=== PATIENT | male | born 1995 | race African-American/Black ===

== ENCOUNTER 2018-08-29 17:40 | Emergency (ER) | payer OTHER ==
[~2018-08-29] VITALS: Ht 167.6 cm; Wt 75.3 kg
[2018-08-29] MEDS ORDERED: IV NORMAL SALINE 1000ML BAG 1,000 ML IV ONE (18:15)
[2018-08-29 18:40] LABS: BASO # 0.1 x10^3/uL (0.0-0.2); BASO % 1 % (0-3); EOS # 0.2 x10^3/uL (0.0-0.7); EOS % 4 % (0-3); HEMATOCRIT 44.4 % (39.0-53.0); HEMOGLOBIN 15.2 g/dL (13.0-17.5); LYMPH # 1.8 x10^3/uL (1.0-4.8); LYMPH % 35 % (24-48); MEAN CORPUSCULAR HEMOGLOBIN 29 pg (25-35); MEAN CORPUSCULAR HGB CONC 34 g/dL (31-37); MEAN CORPUSCULAR VOLUME 85 fL (79-100); MONO # 0.6 x10^3/uL (0.0-1.1); MONO % 11 % (0-9); NEUT # 2.6 x10^3uL (1.8-7.7); NEUT % 49 % (31-73); PLATELET COUNT 163 x10^3/uL (140-400); RED BLOOD COUNT 5.22 x10^6/uL (4.30-5.70); RED CELL DISTRIBUTION WIDTH 13.4 % (11.5-14.5); WHITE BLOOD COUNT 5.2 x10^3/uL (4.0-11.0)
[2018-08-29 18:49] LABS: CALCIUM 9.5 mg/dL (8.5-10.1); CREATININE 1.2 mg/dL (0.7-1.3); GFR 90.8; POTASSIUM 4.3 mmol/L (3.5-5.1)
[2018-08-29 19:02] LABS: ALBUMIN 4.2 g/dL (3.4-5.0); ALBUMIN/GLOBULIN RATIO 1.4 (1.0-1.7); MAGNESIUM 2.2 mg/dL (1.8-2.4); TOTAL BILIRUBIN 0.6 mg/dL (0.2-1.0); TOTAL PROTEIN 7.3 g/dL (6.4-8.2)
--- NOTE | 2018-08-29 19:17 | RAD ---
Bilateral lower extremity venous Doppler dated 08/29/2018. No comparison available. Clinical data indication: Tingling and pain. Recent car travel. FINDINGS: Grayscale, color-flow and spectral waveform analysis performed to include the deep venous system of both lower extremity. Normal compressibility, phasicity and augmentation of flow throughout. No filling defects are seen. IMPRESSION: No evidence of lower extremity deep vein thrombosis. Electronically signed by: Ovidio Fountain MD (08/29/2018 7:14 PM) [facility]
[2018-08-29 19:18] LABS: BILIRUBIN,URINE NEGATIVE (NEG); CLARITY,URINE CLOUDY; COLOR,URINE YELLOW; NITRITE,URINE NEGATIVE (NEG); PROTEIN,URINE NEGATIVE (NEG-TRACE); UROBILINOGEN,URINE 0.2 mg/dL (0.2 mg/dL)
[2018-08-29 19:26] LABS: AMPHETAMINE/METHAMPHETAMINE NEG (NEG); BARBITURATES NEG (NEG); BENZODIAZEPINES NEG (NEG); CANNABINOIDS POS (NEG); COCAINE NEG (NEG); METHADONE NEG (NEG); OPIATES NEG (NEG); PHENCYCLIDINE NEG (NEG)
[2018-08-29 19:27] LABS: BACTERIA,URINE 0 /HPF (0-FEW); RBC,URINE 0 /HPF (0-2); SQUAMOUS EPITHELIAL CELL,UR FEW /LPF; WBC,URINE 0 /HPF (0-4)
--- NOTE | 2018-08-29 19:39 | RAD ---
Single view chest dated 08/29/2018. Comparison made to 12/27/2006. CLINICAL INDICATION: Pain. FINDINGS: Single upright portable exam performed. Heart and mediastinal contours are stable. Lungs are somewhat hyperinflated but otherwise clear. No consolidation or pleural effusion. No pneumothorax. IMPRESSION: No acute radiographic abnormality. Electronically signed by: Ovidio Fountain MD (08/29/2018 7:36 PM) [facility]
[2018-08-29 20:24] VITALS: BP 117/60
--- NOTE | 2018-08-29 20:45 | PHYS DOC ---
Past Medical History Past Medical History: No Pertinent History Past Surgical History: No Surgical History Alcohol Use: Rarely Drug Use: None Adult General Chief Complaint Chief Complaint: OTHER COMPLAINTS [facility] HPI Patient is a 23 year old male with no medical history who presents to the ED complaining of tingling to bilateral thighs and bilateral biceps. Patient states he does intensive workout sessions. He states since this morning he has had this tingling/internal itching sensation in his biceps as well as thighs. Patient denies any injury. Denies any chest pain or shortness of breath. Denies any headache. He states he traveled from [place] to [place] by vehicle 2 days ago. Denies any unilateral leg pain, denies any numbness to bilateral lower extremities. Denies any use of hormones or steroids. Denies any recent hospitalization or surgery Review of Systems Review of Systems Constitutional: Denies fever or chills [] Eyes: Denies change in visual acuity, redness, or eye pain [] HENT: Denies nasal congestion or sore throat [] Respiratory: Denies cough or shortness of breath [] Cardiovascular: No additional information not addressed in HPI [] GI: Denies abdominal pain, nausea, vomiting, bloody stools or diarrhea [] : Denies dysuria or hematuria [] Musculoskeletal: Reports tingling to bilateral thighs and biceps. Denies back pain or joint pain [] Integument: Denies rash or skin lesions [] Neurologic: Denies headache, focal weakness or sensory changes [] All other systems were reviewed and found to be within normal limits, except as documented in this note. Current Medications Current Medications Current Medications Medications (Trade) Dose Ordered Sig/Ana Cristina Start Time Stop Time Status Last Admin Dose Admin Sodium Chloride 1,000 ml @ 1,000 mls/hr 1X ONCE 08/29/18 18:15 08/29/18 19:14 DC 08/29/18 18:34 1,000 MLS/HR Allergies Allergies Allergies Coded Allergies Type Severity Reaction Last Updated Verified No Known Drug Allergies 10/06/17 No Physical Exam Physical Exam Constitutional: Well developed, well nourished, no acute distress, non-toxic appearance. [] HENT: Normocephalic, atraumatic, bilateral external ears normal, oropharynx moist, no oral exudates, nose normal. [] Eyes: PERRLA, EOMI, conjunctiva normal, no discharge. [] Neck: Normal range of motion, no tenderness, supple, no stridor. [] Cardiovascular:Heart rate regular rhythm, no murmur [] Lungs & Thorax: Bilateral breath sounds clear to auscultation [] Abdomen: Bowel sounds normal, soft, no tenderness, no masses, no pulsatile masses. [] Skin: Warm, dry, no erythema, no rash. [] Back: No tenderness, no CVA tenderness. [] Extremities: No tenderness, no cyanosis, no clubbing, ROM intact, no edema. Negative Homans sign bilaterally Neurologic: Alert and oriented X 3, normal motor function, normal sensory function, no focal deficits noted. Cranial nerves II through XII intact Psychologic: Affect normal, judgement normal, mood normal. [] Current Patient Data Vital Signs Vital Signs Date Time Temp Pulse Resp B/P (MAP) Pulse Ox O2 Delivery O2 Flow Rate FiO2 08/29/18 19:54 56 16 123/58 (79) 99 Room Air 08/29/18 17:49 98.1 98.1 Lab Values Laboratory Tests Test 08/29/18 18:30 08/29/18 19:10 White Blood Count 5.2 x10^3/uL (4.0-11.0) Red Blood Count 5.22 x10^6/uL (4.30-5.70) Hemoglobin 15.2 g/dL (13.0-17.5) Hematocrit 44.4 % (39.0-53.0) Mean Corpuscular Volume 85 fL (79-100) Mean Corpuscular Hemoglobin 29 pg (25-35) Mean Corpuscular Hemoglobin Concent 34 g/dL (31-37) Red Cell Distribution Width 13.4 % (11.5-14.5) Platelet Count 163 x10^3/uL (140-400) Neutrophils (%) (Auto) 49 % (31-73) Lymphocytes (%) (Auto) 35 % (24-48) Monocytes (%) (Auto) 11 % (0-9) H Eosinophils (%) (Auto) 4 % (0-3) H Basophils (%) (Auto) 1 % (0-3) Neutrophils # (Auto) 2.6 x10^3uL (1.8-7.7) Lymphocytes # (Auto) 1.8 x10^3/uL (1.0-4.8) Monocytes # (Auto) 0.6 x10^3/uL (0.0-1.1) Eosinophils # (Auto) 0.2 x10^3/uL (0.0-0.7) Basophils # (Auto) 0.1 x10^3/uL (0.0-0.2) Sodium Level 140 mmol/L (136-145) Potassium Level 4.3 mmol/L (3.5-5.1) Chloride Level 104 mmol/L (98-107) Carbon Dioxide Level 29 mmol/L (21-32) Anion Gap 7 (6-14) Blood Urea Nitrogen 15 mg/dL (8-26) Creatinine 1.2 mg/dL (0.7-1.3) Estimated GFR (Cockcroft-Gault) 90.8 BUN/Creatinine Ratio 13 (6-20) Glucose Level 101 mg/dL (70-99) H Calcium Level 9.5 mg/dL (8.5-10.1) Magnesium Level 2.2 mg/dL (1.8-2.4) Total Bilirubin 0.6 mg/dL (0.2-1.0) Aspartate Amino Transferase (AST) 20 U/L (15-37) Alanine Aminotransferase (ALT) 25 U/L (16-63) Alkaline Phosphatase 58 U/L (46-116) Creatine Kinase 376 U/L (39-308) H Creatine Kinase MB (Mass) 1.2 ng/mL (0.0-3.6) Creatine Kinase MB Relative Index 0.3 % (0-4) Myoglobin 48 ng/mL (16-96) Troponin I Quantitative < 0.017 ng/mL (0.000-0.055) VA-Idc-W-Type Natriuretic Peptide 15 pg/mL (0-124) Total Protein 7.3 g/dL (6.4-8.2) Albumin 4.2 g/dL (3.4-5.0) Albumin/Globulin Ratio 1.4 (1.0-1.7) Lipase 177 U/L (73-393) Thyroid Stimulating Hormone (TSH) 1.872 uIU/mL (0.358-3.74) Urine Collection Type Unknown Urine Color Yellow Urine Clarity Cloudy Urine pH 7.0 Urine Specific Dahlgren 1.020 Urine Protein Negative mg/dL (NEG-TRACE) Urine Glucose (UA) Negative mg/dL (NEG) Urine Ketones (Stick) Negative mg/dL (NEG) Urine Blood Negative (NEG) Urine Nitrite Negative (NEG) Urine Bilirubin Negative (NEG) Urine Urobilinogen Dipstick 0.2 mg/dL (0.2 mg/dL) Urine Leukocyte Esterase Negative (NEG) Urine RBC 0 /HPF (0-2) Urine WBC 0 /HPF (0-4) Urine Squamous Epithelial Cells Few /LPF Urine Bacteria 0 /HPF (0-FEW) Urine Opiates Screen Neg (NEG) Urine Methadone Screen Neg (NEG) Urine Barbiturates Neg (NEG) Urine Phencyclidine Screen Neg (NEG) Urine Amphetamine/Methamphetamine Neg (NEG) Urine Benzodiazepines Screen Neg (NEG) Urine Cocaine Screen Neg (NEG) Urine Cannabinoids Screen Pos (NEG) Urine Ethyl Alcohol Neg (NEG) Laboratory Tests 08/29/18 18:30 Laboratory Tests 08/29/18 18:30 EKG EKG 18:[address] Carter sinus rhythm them heart rate 61 no STEMI Radiology/Procedures Radiology/Procedures []PROCEDURE: VENOUS LOWER EXT BILATERAL Bilateral lower extremity venous Doppler dated 08/29/2018. No comparison available. Clinical data indication: Tingling and pain. Recent car travel. FINDINGS: Grayscale, color-flow and spectral waveform analysis performed to include the deep venous system of both lower extremity. Normal compressibility, phasicity and augmentation of flow throughout. No filling defects are seen. IMPRESSION: No evidence of lower extremity deep vein thrombosis. Electronically signed by: Ovidio Fountain MD (08/29/2018 7:14 PM) [facility] PROCEDURE: PORTABLE CHEST 1V Single view chest dated 08/29/2018. Comparison made to 12/27/2006. CLINICAL INDICATION: Pain. FINDINGS: Single upright portable exam performed. Heart and mediastinal contours are stable. Lungs are somewhat hyperinflated but otherwise clear. No consolidation or pleural effusion. No pneumothorax. IMPRESSION: No acute radiographic abnormality. Electronically signed by: Ovidio Fountain MD (08/29/2018 7:36 PM) [facility] DICTATED and SIGNED BY: OVIDIO FOUNTAIN MD DATE: 08/29/181935 Course & Med Decision Making Course & Med Decision Making Pertinent Labs and Imaging studies reviewed. (See chart for details) This is a 23-year-old female patient presenting to the ED today with tingling/itching sensation in the internal thighs and biceps. Patient does intensive workout sessions. He also traveled from [place] to [place] by vehicle 2 days ago. Venous Doppler is negative bilaterally. Patient's workup is negative. We gave him a liter of fluid. We reassured him. He was discharged to home. Instructed not to do any intensive workout in the next couple days. Follow-up with his own doctor a 1 week. Luisito Disclaimer Dragon Disclaimer This electronic medical record was generated, in whole or in part, using a voice recognition dictation system. Departure Departure Impression: Primary Impression: Tingling in extremities Disposition: HOME, SELF-CARE Condition: STABLE Referrals: NO PCP (PCP) follow up with your doctor in 1-2 weeks Patient Instructions: Paresthesia, [id number] Additional Instructions: You were evaluated in the emergency room, your workup was negative. Please consider resting your muscles/body from intensive exercise for a couple days. Push fluids. Follow-up with your doctor in one week. VIRGINIA VERDUZCO ENAMEL PULVERIZER August 29, 2018 20:45
--- NOTE | 2018-08-30 06:58 | EKG ---
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
== END 2018-08-29 20:51 | disposition home or self-care (01) ==
LOC: ER 17:40
DX: R20.2 Paresthesia of skin (principal); M79.605 Pain in left leg; M79.604 Pain in right leg; R07.89 Other chest pain
CPT/HCPCS: 36415; 71045; 80053; 80307; 81001; 82553; 83690; 83735; 83874; 83880; 84443; 84484; 85025; 93005; 93970; 99285; J7030

== ENCOUNTER → 2018-09-21 | Outpatient (CLI) | payer OTHER ==
[2018-08-29 20:24] VITALS: BP 117/60
--- NOTE | 2018-09-22 09:07 | RAD ---
EXAM: 1. Pelvis one view standing. 2. Pelvis one view sitting. HISTORY: Coccydynia. COMPARISON: None. FINDINGS: Lateral views of the sacrum and coccyx were obtained sitting and standing. There is no displaced fracture. There is no subluxation or displacement of the coccyx sitting or standing. There are no suspicious lesions by radiographs. IMPRESSION: 1. No fracture or subluxation. Electronically signed by: Nicholas El MD (09/22/2018 9:05 AM) [facility]
== END | disposition home or self-care (01) ==
LOC: RAD 17:45
PROVIDERS: ATTEND Family Medicine
DX: M53.3 Sacrococcygeal disorders, not elsewhere classified (principal)
CPT/HCPCS: 72170

== ENCOUNTER → 2018-10-02 | Outpatient (CLI) | payer OTHER ==
--- NOTE | 2018-10-02 12:11 | RAD ---
MRI of the lumbar spine without contrast 10/02/2018 CLINICAL HISTORY: Low back pain with radiates down both legs. TECHNIQUE: Unenhanced T1-weighted and T2-weighted sagittal and axial and inversion recovery sagittal images of the lumbar spine were obtained. FINDINGS: Comparison is made to radiographs of the lumbosacral spine dated 09/21/2018. Minimal S-shaped curvature of the thoracolumbar spine is seen. The morphology and signal characteristics of all of the disks of the lumbar spine are within normal limits. The marrow signal of the lumbar vertebrae visualized sacral is within normal limits. The conus medullaris is normal morphology, position, and signal characteristics. No significant degenerative changes are seen involving the lumbar disc spaces. No focal disc herniation is seen. No area of significant central spinal canal or neural foraminal stenosis is noted. IMPRESSION: Negative study. Electronically signed by: Rommel Leung MD (10/02/2018 12:08 PM) [id number]
== END | disposition home or self-care (01) ==
LOC: MRI 08:43
PROVIDERS: ATTEND Family Medicine
DX: M54.16 Radiculopathy, lumbar region (principal); M43.8X5 Other specified deforming dorsopathies, thoracolumbar region
CPT/HCPCS: 72148

== ENCOUNTER 2019-03-15 14:16 | Emergency (ER) | payer OTHER ==
[~2019-03-15] VITALS: Ht 167.6 cm; Wt 75.3 kg
[2019-03-15 14:54] VITALS: BP 122/56
--- NOTE | 2019-03-15 15:26 | RAD ---
EXAM: Left foot, 3 views. HISTORY: Pain. COMPARISON: None. FINDINGS: 3 views of the left foot are obtained. There is no fracture, dislocation or subluxation. IMPRESSION: No acute osseous finding. Electronically signed by: Tracy Lee MD (03/15/2019 3:24 PM) [place] [id number]
--- NOTE | 2019-03-15 15:41 | PHYS DOC ---
Past Medical History Past Medical History: No Pertinent History Past Surgical History: No Surgical History Alcohol Use: Rarely Drug Use: None Adult General Chief Complaint Chief Complaint: FOOT INJURY PAIN [facility] HPI Patient is a 23 year old AA male who presents to the emergency department with complaints of lateral left midfoot pain after basketball injury on March [id number]. Patient states he was playing basketball when he ended up twisting his left ankle and foot when he came down on another player. Patient denies any numbness, tingling, or weakness. He states he's been taking ibuprofen at home and applying ice as needed for pain. Patient currently rates his pain a 4 out of 10 on pain scale he denies any numbness, tingling, or weakness of the affected extremity. Patient states he has been able to ambulate and bear weight on his left foot without problems. He just reports concern because the foot is rubber heel and sole press tender and painful at the end of each day. All other ROS is neg unless otherwise noted in HPI. Review of Systems Review of Systems See Above Allergies Allergies Allergies Coded Allergies Type Severity Reaction Last Updated Verified No Known Drug Allergies 10/06/17 No Physical Exam Physical Exam See Above Constitutional: Well developed, well nourished, no acute distress, non-toxic appearance. [] HENT: Normocephalic, atraumatic, bilateral external ears normal, nose normal. [] Eyes: PERRLA, EOMI, conjunctiva normal, no discharge. [] Neck: Normal range of motion, no stridor. [] Cardiovascular:Heart rate regular rhythm Lungs & Thorax: verbalized an understanding of home care, medications, follow- up, and return to ED instructions and was in agreement with the plan of care. Skin: Warm, dry, no erythema, no rash, no bruising. [] Extremities: Left lateral midfoot tenderness to palpation, no deformity, no ankle tenderness, no cyanosis, no clubbing, ROM intact, no edema. [] Neurologic: Alert and oriented X 3, no focal deficits noted. [] Psychologic: Affect normal, judgement normal, mood normal. [] Current Patient Data Vital Signs Vital Signs Date Time Temp Pulse Resp B/P (MAP) Pulse Ox O2 Delivery O2 Flow Rate FiO2 03/15/19 14:54 98.6 73 16 122/56 (78) 96 Room Air 98.6 EKG EKG [] Radiology/Procedures Radiology/Procedures PROCEDURE: FOOT LEFT 3V EXAM: Left foot, 3 views. HISTORY: Pain. COMPARISON: None. FINDINGS: 3 views of the left foot are obtained. There is no fracture, dislocation or subluxation. IMPRESSION: No acute osseous finding.[] Course & Med Decision Making Course & Med Decision Making Pertinent Labs and Imaging studies reviewed. (See chart for details) [] Dragon Disclaimer Dragon Disclaimer This electronic medical record was generated, in whole or in part, using a voice recognition dictation system. Departure Departure Impression: Primary Impression: Contusion of left foot, initial encounter Disposition: HOME, SELF-CARE Condition: STABLE Referrals: GAGAN BURCH MD (PCP) Patient Instructions: Contusion, [id number] Additional Instructions: Your x-ray today was negative for any acute fracture or dislocation. Continue to take ibuprofen and apply ice to the sore area as needed for comfort. Follow-up with your primary care doctor if symptoms persist, return to ER if symptoms worsen. SHERRON ALEGRIA [employer] [place] Mar 15, 2019 15:41
== END 2019-03-15 16:07 | disposition home or self-care (01) ==
LOC: ER 14:16
DX: S90.32XA Contusion of left foot, initial encounter (principal); X50.9XXA Other and unspecified overexertion or strenuous movements or postures, initial encounter; Y93.67 Activity, basketball; Y92.89 Other specified places as the place of occurrence of the external cause; Y99.8 Other external cause status
CPT/HCPCS: 73630; 99284

== ENCOUNTER 2019-06-29 20:39 | Emergency (ER) | payer OTHER ==
[~2019-06-29] VITALS: Ht 167.6 cm; Wt 76.4 kg
--- NOTE | 2019-06-29 21:07 | PHYS DOC ---
Past Medical History Past Medical History: No Pertinent History Past Surgical History: No Surgical History Smoking Status: Never Smoker Alcohol Use: Rarely Drug Use: None Adult General Chief Complaint Chief Complaint: EYE PROBLEMS HPI HPI 23-year-old male presents to the emergency department with complaints of chemicals in his eyes. 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 He states he used eyedrops and wash home however wanted to come to the emergency department for further evaluation of his eyes. He has no visual changes. He has no scleral irritation pressure on examination. Patient denies any particular drainage. He states he does have little bit of pain appreciated to his eye. Review of Systems Review of Systems Constitutional: Denies fever or chills [] Eyes: Denies change in visual acuity, redness, or eye pain [] HENT: Denies nasal congestion or sore throat [] Respiratory: Denies cough or shortness of breath [] Cardiovascular: No additional information not addressed in HPI [] GI: Denies abdominal pain, nausea, vomiting, bloody stools or diarrhea [] : Denies dysuria or hematuria [] Musculoskeletal: Denies back pain or joint pain [] Integument: Denies rash or skin lesions [] Neurologic: Denies headache, focal weakness or sensory changes [] Endocrine: Denies polyuria or polydipsia [] All other systems were reviewed and found to be within normal limits, except as documented in this note. Current Medications Current Medications Current Medications Medications (Trade) Dose Ordered Sig/Ana Cristina Start Time Stop Time Status Last Admin Dose Admin Tetracaine HCl (Tetracaine) 40 drop STK-MED ONCE 06/29/19 21:14 06/29/19 21:14 DC Allergies Allergies Allergies Coded Allergies Type Severity Reaction Last Updated Verified No Known Drug Allergies 10/06/17 No Physical Exam Physical Exam Constitutional: Well developed, well nourished, no acute distress, non-toxic appearance. [] HENT: Normocephalic, atraumatic, bilateral external ears normal, oropharynx moist, no oral exudates, nose normal. [] Eyes: PERRLA, EOMI, conjunctiva normal, no discharge. minimal pain on exam Cardiovascular:Heart rate regular rhythm, no murmur [] Lungs & Thorax: Bilateral breath sounds clear to auscultation [] Abdomen: Bowel sounds normal, soft, no tenderness, no masses, no pulsatile masses. [] Skin: Warm, dry, no erythema, no rash. [] Neurologic: Alert and oriented X 3, no focal deficits noted. [] Psychologic: Affect normal, judgement normal, mood normal. [] Current Patient Data Vital Signs Vital Signs Date Time Temp Pulse Resp B/P (MAP) Pulse Ox O2 Delivery O2 Flow Rate FiO2 06/29/19 20:55 98.1 73 18 127/78 (94) 99 Room Air 98.1 EKG EKG [] Radiology/Procedures Radiology/Procedures [] Course & Med Decision Making Course & Med Decision Making Pertinent Labs and Imaging studies reviewed. (See chart for details) []23-year-old male presents to the emergency department with complaints of chemicals in his eyes. 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 He states he used eyedrops and wash home however wanted to come to the emergency department for further evaluation of his eyes. He has no visual changes. He has no scleral irritation pressure on examination. Patient denies any particular drainage. He states he does have little bit of pain appreciated to his eye. Discussed with poison control recommend irrigation with Izabel lens - no concern for corneal ulceration No evidence of abrasion or irritation appreciated at this time. Antibiotic provided upon discharge prophylactically Discussed dc home with patient Luisito Disclaimer Luisito Disclaimer This electronic medical record was generated, in whole or in part, using a voice recognition dictation system. Departure Departure Impression: Primary Impression: Chemical exposure of eye Disposition: HOME, SELF-CARE Condition: STABLE Referrals: NO PCP (PCP) Patient Instructions: Chemical Burn, [id number] Additional Instructions: Tetracaine used to numb the eye Right eye without evidence of chemical conjunctivitis on exam Prophylactic abx provided upon discharge s/p izabel lens irrigation Scripts Sulfacetamide Sodium (BLEPH-10) 5 Ml Drops 2 DROP OD QID, #5 ML 0 Refills Prov: WILFRIDO MILLS MD 06/29/19 WILFRIDO MILLS MD Jun 29, 2019 21:07
[2019-06-29] MEDS ORDERED: TETRACAINE 0.5% OPHTH SOLUTION 4ML BOTTLE. ONE (21:14)
[2019-06-29] MEDS ORDERED: TETRACAINE 0.5% OPHTH SOLUTION 4ML BOTTLE. OD ONE (21:15)
[2019-06-29] MEDS ORDERED: SULF5DRO OD (21:20)
[2019-06-29 21:46] VITALS: BP 122/61
== END 2019-06-29 21:46 | disposition home or self-care (01) ==
LOC: ER 20:39
DX: H57.13 Ocular pain, bilateral (principal); H57.89 Other specified disorders of eye and adnexa
CPT/HCPCS: 99284

== ENCOUNTER 2020-11-07 11:35 | Emergency (ER) | payer OTHER ==
[~2020-11-07] VITALS: Ht 167.6 cm; Wt 79.0 kg
[~2020-11-07 11:35] MED LIST: SULF5DRO OD
[2020-11-07 13:15] VITALS: BP 119/70
--- NOTE | 2020-11-07 13:18 | PHYS DOC ---
Past Medical History Past Medical History: No Pertinent History Past Surgical History: No Surgical History Smoking Status: Never Smoker Alcohol Use: None Drug Use: None General Adult EDM: Chief Complaint: FATIGUE HPI: HPI: Patient is a 25 year old male who presented to ER with 3-day history of cough, congestion, sore throat, body ache, diarrhea, fever and chill. Patient admitted of smoked marijuana. Patient denies any abdominal pain, no chest pain. Patient denies any headache. Patient denies been vaccinated for COVID-19. Patient said his family has the same problem. Review of Systems: Review of Systems: Constitutional: Positive for fever or chills. [] Eyes: Denies change in visual acuity. [] HENT: Positive for nasal congestion or sore throat. [] Respiratory: Positive for cough, no shortness of breath. [] Cardiovascular: Denies chest pain or edema. [] GI: Denies abdominal pain, nausea, vomiting, bloody stools, no diarrhea : Denies dysuria. [] Musculoskeletal: Denies back pain or joint pain. [] Integument: Denies rash. [] Neurologic: Denies headache, focal weakness or sensory changes. [] Endocrine: Denies polyuria or polydipsia. [] Lymphatic: Denies swollen glands. [] Psychiatric: Denies depression or anxiety. [] Heart Score: C/O Chest Pain: N/A Risk Factors: Risk Factors: DM, Current or recent (<one month) smoker, HTN, HLP, family history of CAD, obesity. Risk Scores: Score 0 - 3: 2.5% MACE over next 6 weeks - Discharge Home Score 4 - 6: 20.3% MACE over next 6 weeks - Admit for Clinical Observation Score 7 - 10: 72.7% MACE over next 6 weeks - Early Invasive Strategies Allergies: Allergies: Allergies Coded Allergies Type Severity Reaction Last Updated Verified No Known Drug Allergies 10/06/17 No Physical Exam: PE: Constitutional: Well developed, well nourished, no acute distress, non-toxic ap pearance. [] HENT: Normocephalic, atraumatic, bilateral external ears normal, oropharynx moist, no oral exudates, nose normal. [] Eyes: PERRLA, EOMI, conjunctiva normal, no discharge. [] Neck: Normal range of motion, no tenderness, supple, no stridor. [] Cardiovascular:Heart rate regular rhythm, no murmur [] Lungs & Thorax: Bilateral breath sounds clear to auscultation [] Abdomen: Bowel sounds normal, soft, no tenderness, no masses, no pulsatile masses. [] Skin: Warm, dry, no erythema, no rash. [] Back: No tenderness, no CVA tenderness. [] Extremities: No tenderness, no cyanosis, no clubbing, ROM intact, no edema. [] Neurologic: Alert and oriented X 3, normal motor function, normal sensory function, no focal deficits noted. [] Psychologic: Affect normal, judgement normal, mood normal. [] Current Patient Data: Labs: Laboratory Tests Test 11/07/20 12:30 SARS-CoV-2 Antigen (Rapid) Positive (NEGATIVE) *A Vital Signs: Vital Signs Date Time Temp Pulse Resp B/P (MAP) Pulse Ox O2 Delivery O2 Flow Rate FiO2 11/07/20 12:18 99.5 85 18 137/76 (81) 100 Room Air 99.5 EKG: EKG: [] Radiology/Procedures: Radiology/Procedures: [][facility] [address] [place] [address] IMAGING REPORT Signed PATIENT: KATIE MEEKSCCOUNT: [id number] : 1995 LOCATION: ER AGE: 25 SEX: M EXAM STATUS: REG ER ORD. PHYSICIAN: FLACO SON DO REASON: cough, fever, chill PROCEDURE: CHEST AP ONLY XR CHEST 1V 11/07/2020 12:45 PM INDICATION: Cough, fever COMPARISON: 08/29/2018 TECHNIQUE: Portable frontal view of the chest is provided. FINDINGS: The cardiomediastinal silhouette is within normal limits. Lungs are clear. There are no significant pleural effusions. There is no pulmonary vascular congestion. No pneumothorax. No suspicious osseous abnormality. IMPRESSION: There is no acute cardiopulmonary process. Electronically signed by: Harvey Hoffmann MD (11/07/2020 1:20 PM) [id number] DICTATED and SIGNED BY: HARVEY HOFFMANN MD DATE: 11/07/20 [id number] Course & Med Decision Making: Course & Med Decision Making Pertinent Labs and Imaging studies reviewed. (See chart for details) Patient was tested positive for COVID-19, his vital signs are stable. Patient will be discharged home. Luisito Disclaimer: Luisito Disclaimer: This electronic medical record was generated, in whole or in part, using a voice recognition dictation system. Departure Departure Impression: Primary Impression: COVID-19 Disposition: 01 HOME / SELF CARE / HOMELESS Condition: STABLE Referrals: GAGAN BURCH MD (PCP) Follow up with your doctor as needed Patient Instructions: Viral Syndrome Additional Instructions: You have been tested for or diagnosed with COVID-19. It is an infection caused by a new type of coronavirus. COVID-19 will cause cold-like or mild flu symptoms in most. It can cause more severe symptoms like problems breathing in some. There is no treatment for COVID-19. The body will clear the infection over time. Self-care will help to ease discomfort. Steps to Take: Self-Care Rest as needed. Healthy habits may help you feel better. Steps include: Choose healthy foods including fruits and vegetables. Drink water throughout the day. Get plenty of sleep each night. If you smoke, try to quit. It may ease breathing. Avoid alcohol. Keep Others Healthy The virus can spread to others. Droplets are released every time you sneeze or cough. The droplets can get into the mouth, nose, or eyes of people near you and lead to infection. To lower the chances of spreading COVID-19 to others: Stay at home until your doctor has said it is safe to leave. If you tested positive this will mean staying isolated until both of the following are true: At least 7 days have passed since the start of illness. You are free of fever for at least 72 hours without the use of medicine. During this time: - Avoid public areas, events, or transportation. Do not return to work or school until your doctor has said it is safe to do so. - Call ahead if you need to go to a medical center. Let them know you may have COVID-19. It will help them guide you where to go. They may also ask you to wear a facemask when you come to the office. - If you call for emergency medical services, let them know you may have COVID- 19. While at home: - Try to avoid close contact with others. Stay about 6 feet away. - If possible, spend most of your time in a separate room from others. - Use a face mask if you will be in close contact with others such as sharing a room or vehicle. - Have someone wipe down common surfaces in the home. Use household ginner helper every day on areas like doorknobs, counters, or sinks. - Cough or sneeze into a tissue. Throw the tissue away right after use. If a tissue is not available, cough or sneeze into your elbow. - Wash your hands often. Wash them after sneezing or coughing. Use soap and water and wash for at least 20 seconds. Alcohol based hand carbonating stone cleaner can be used if soap and water is not available. - Do not prepare food for others. Avoid sharing personal items like forks, spoons, or toothbrushes. - Avoid close contact with pets while you are sick. There is no evidence of the virus passing to pets. This is a safety step until more is known about this virus. Isolation can be frustrating. Social interaction can help. Keep in touch with friends and family through phone and tech options. You can still interact with others in your home, just keep a safe distance of about 6 feet. Follow-up: Your doctors office will check in with you to see if there are any changes in your health. You may be asked to keep track of symptoms to share with them. They will also let you know when you are clear to be in public again. Problems to Look Out For: Contact your doctor if your recovery is not going as you expect. Get emergency care if you have problems such as: - Trouble breathing - Nonstop chest pain or pressure - Changes in awareness, confusion, or problems waking - Lips or face have bluish color - Worsening of symptoms If you think you have an emergency, call for emergency medical services right away. As taken from [facility] Prednisone (PREDNISONE) 20 Mg Tablet 1 TAB PO DAILY for 7 Days, #7 TAB Prov: FLACO SON DO 11/07/20 FLACO SON DO Nov 07, 2020 13:18
--- NOTE | 2020-11-07 13:22 | RAD ---
XR CHEST 1V 11/07/2020 12:45 PM INDICATION: Cough, fever COMPARISON: 08/29/2018 TECHNIQUE: Portable frontal view of the chest is provided. FINDINGS: The cardiomediastinal silhouette is within normal limits. Lungs are clear. There are no significant pleural effusions. There is no pulmonary vascular congestion. No pneumothora x. No suspicious osseous abnormality. IMPRESSION: There is no acute cardiopulmonary process. Electronically signed by: Mariia Daniels MD (11/07/2020 1:20 PM) [id number]
[2020-11-07] MEDS ORDERED: PRED20TA PO (13:36)
== END 2020-11-07 13:50 | disposition home or self-care (01) ==
LOC: ER 11:35
DX: U07.1 COVID-19 (principal)
CPT/HCPCS: 71045; 87070; 87426; 87880; 99284; U0003; U0005

== ENCOUNTER 2021-01-12 10:43 | Emergency (ER) | payer OTHER ==
[~2021-01-12] VITALS: Ht 167.6 cm; Wt 75.3 kg
[~2021-01-12 10:43] MED LIST changes: +PRED20TA PO
[2021-01-12 10:50] VITALS: BP 114/72
--- NOTE | 2021-01-12 11:00 | PHYS DOC ---
Past Medical History Past Medical History: No Pertinent History (SUAD,KENDRA Coburn [employer]BER SECURITY ENGINEER) Past Surgical History: No Surgical History ([facility] [employer] SECURITY ENGINEER) Smoking Status: Never Smoker Alcohol Use: None Drug Use: None ([facility]) General Adult EDM: Chief Complaint: ANKLE PROBLEM HPI: HPI: Patient is a 25 year old male who presents with left ankle pain after he was playing basketball on Monday with somebody else stepped on his foot when he was trying to move at the same time causing him to twist his ankle and now he has pain and some swelling to the medial malleolus. Rates his pain at a 7 out of 10 and states it is just aching. She has been taking Tylenol and using RICE. He has had previous dunlap to the same ankle. Denies numbness or tingling, skin color change, focal weakness. (KENDRA BORJAS CYBER SECURITY ENGINEER) Review of Systems: Review of Systems: Constitutional: Denies fever or chills. [] Eyes: Denies change in visual acuity. [] HENT: Denies nasal congestion or sore throat. [] Respiratory: Denies cough or shortness of breath. [] Cardiovascular: Denies chest pain or + left ankle edema. [] GI: Denies abdominal pain, nausea, vomiting, bloody stools or diarrhea. [] : Denies dysuria. [] Musculoskeletal: Denies back pain or + left ankle joint pain. [] Integument: Denies rash. [] Neurologic: Denies headache, focal weakness or sensory changes. [] Endocrine: Denies polyuria or polydipsia. [] Lymphatic: Denies swollen glands. [] Psychiatric: Denies depression or anxiety. [] (SUAD,KENDRA Coburn CYBER SECURITY ENGINEER) Heart Score: C/O Chest Pain: No (KENDRA BORJAS [employer]BER SECURITY ENGINEER) Allergies: Allergies: Allergies Coded Allergies Type Severity Reaction Last Updated Verified No Known Drug Allergies 10/06/17 No (KENDRA BORJAS [employer] SEC[employer] ENGINEER) Physical Exam: PE: Constitutional: Well developed, well nourished, no acute distress, non-toxic appearance. [] HENT: Normocephalic, atraumatic, bilateral external ears normal, oropharynx moist, no oral exudates, nose normal. [] Eyes: PERRLA, EOMI, conjunctiva normal, no discharge. [] Neck: Normal range of motion, no tenderness, supple, no stridor. [] Cardiovascular:Heart rate regular rhythm, no murmur [] Lungs & Thorax: Bilateral breath sounds clear to auscultation [] Abdomen: Bowel sounds normal, soft, no tenderness, no masses, no pulsatile masses. [] Skin: Warm, dry, no erythema, no rash. [] Back: No tenderness, no CVA tenderness. [] Extremities: Medial tenderness, no cyanosis, no clubbing, ROM intact, 1+ edema. [] Neurologic: Alert and oriented X 3, normal motor function, normal sensory function, no focal deficits noted. [] Psychologic: Affect normal, judgement normal, mood normal. [] (KENDRA BORJAS APRN) EKG: EKG: [] (KENDRA BORJAS APRN) Radiology/Procedures: Radiology/Procedures: [] Impression: [address] [place] [address] IMAGING REPORT Signed PATIENT: KENTON MEEKS MACCOUNT: [id number] : 1995 LOCATION: ER AGE: 25 SEX: M EXAM STATUS: REG ER ORD. PHYSICIAN: KENDRA BORJAS APRN REASON: pain and swelling after twisting ankle while playing basketball PROCEDURE: ANKLE LEFT 3V LEFT ANKLE AP, LATERAL, OBLIQUE Clinical Indication: Reason: pain and swelling after twisting ankle while playing basketball Comparison: None. Findings: There are 3 tiny bone fragments near the tip of the medial malleolus with minimal associated soft tissue swelling. These could be acute or chronic tiny avulsion fracture fragments. There is otherwise no acute fracture. Mineralization is normal. The ankle mortise is intact. There is a tiny ossific body dorsally by the navicular that may be accessory ossicle or due to old injury. There is no associated soft tissue swelling dorsally. IMPRESSION: Question age-indeterminate tiny avulsion fracture at the tip of the medial malleolus. Electronically signed by: Olu Arzate MD (01/12/2021 11:31 AM) [id number] DICTATED and SIGNED BY: OLU ARZATE MD DATE: 01/12/21 [id number] (KENDRA BORJAS APRN) Course & Med Decision Making: Course & Med Decision Making Pertinent Labs and Imaging studies reviewed. (See chart for details) See HPI. Alert and oriented x4. Ambulatory with steady gait. Speaks in full clear sentences. Foot full weightbearing pressure on the extremity. 1+ swelling to the medial ankle. Full range of motion of the joint. No laxity. No deformity. No bruising. Can wiggle her toes. Sensations intact. Pedal pulse strong present. Cap refill less than 2 seconds. X-ray shows: IMPRESSION: Question age-indeterminate tiny avulsion fracture at the tip of the medial malleolus. Patient is placed in a walking boot. He is referred to orthopedics. Splint assessment: Neurovascularly intact post splint replacement with good fit. Patient's extremity symptoms have stabilized well they have been evaluated in the department and are appropriate for outpatient follow-up. No evidence of compartment syndrome, neurologic injury, vascular injury, open joint, open fracture, tendon laceration, or foreign body. [] (KENDRA BORJAS APRN) Dragon Disclaimer: Dragon Disclaimer: This electronic medical record was generated, in whole or in part, using a voice recognition dictation system. (KENDRA BORJAS APRN) Departure Departure Impression: Primary Impression: Ankle pain, left Qualified Codes: M25.572 - Pain in left ankle and joints of left foot Disposition: HOME / SELF CARE / HOMELESS Condition: STABLE Referrals: GAGAN BURCH MD (PCP) NELIDA NOEL MD Patient Instructions: Ankle Sprain, Avulsion Fracture Additional Instructions: Follow-up with your primary care or Dr. Noel the orthopedic doctor in next week. Keep the boot on and to you for follow-up care. Need to have more imaging done to make sure everything is healing correctly. Take ibuprofen for your pain and use ice and elevation. Rest the extremity. Do not play sports until you are released by physician. KENDRA BORJAS APRN Jan 12, 2021 11:00 ANA MASON DO Jan 12, 2021 12:19
--- NOTE | 2021-01-12 11:33 | RAD ---
LEFT ANKLE AP, LATERAL, OBLIQUE Clinical Indication: Reason: pain and swelling after twisting ankle while playing basketball Comparison: None. Findings: There are 3 tiny bone fragments near the tip of the medial malleolus with minimal associated soft tis nahed swelling. These could be acute or chronic tiny avulsion fracture fragments. There is otherwise no acute fracture. Mineralization is normal. The ankle mortise is intact. There is a tiny ossific body dorsally by the navicular that may be accessory ossicle or due to old injury. There is no associated soft tissue swelling dorsally. IMPRESSION: Question age-indeterminate tiny avulsion fracture at the tip of the medial malleolus. Electronically signed by: Olu Arzate MD (01/12/2021 11:31 AM) [id number]
== END 2021-01-12 12:38 | disposition home or self-care (01) ==
LOC: ER 10:43
DX: M25.572 Pain in left ankle and joints of left foot (principal); G89.11 Acute pain due to trauma; X50.9XXA Other and unspecified overexertion or strenuous movements or postures, initial encounter; Y93.67 Activity, basketball; Y92.89 Other specified places as the place of occurrence of the external cause; Y99.8 Other external cause status
CPT/HCPCS: 73610; 99283